=== PATIENT | male | born 1955 | race African-American/Black ===

== ENCOUNTER 2017-01-03 20:55 | Emergency (ER) | payer SELFPAY ==
[2017-01-03] MEDS ORDERED: BP MED (21:07)
== END 2017-01-03 23:29 | disposition home or self-care (01) ==
LOC: SED 20:55
DX: M75.32 Calcific tendinitis of left shoulder (principal); J45.909 Unspecified asthma, uncomplicated; I10 Essential (primary) hypertension
CPT/HCPCS: 73030; 96372; 99283; J1885